=== PATIENT | female | born 1955 | race Caucasian/White ===

== ENCOUNTER 2019-07-24 13:23 | Outpatient (CLI) | payer OTHER, SELFPAY ==
--- NOTE | 2019-07-24 13:48 | XR_ITS ---
WS: [id number] Right hip, AP and frog-leg views, 07/24/2019 Clinical Data: R HIP PAIN Comparison: None. Findings: No fractures or dislocations are seen. The right hip joint is intact. No narrowing, sclerosis or eros ion is seen. The soft tissues are not remarkable. The adjacent pelvis is normal. There is irregularity of the acetabular lip from minimal osteoarthritic change. The right SI joint an d pubic symphysis are unremarkable. XR/XR hip RT 2-3V wo/w pel* [id number] Impression: Minimal osteoarthritis of the right acetabulum.
== END 2019-07-24 13:24 | disposition home or self-care (01) ==
LOC: RAD 13:43
PROVIDERS: Family Provider Family Medicine; PCP Family Medicine; Visit Provider Orthopaedic Surgery
DX: M16.11 Unilateral primary osteoarthritis, right hip (principal); M25.551 Pain in right hip
CPT/HCPCS: 73502

== ENCOUNTER 2020-01-04 13:43 | Outpatient (CLI) | payer OTHER, SELFPAY | END 2020-01-04 13:44 | disposition home or self-care (01) | PROVIDERS: PCP Family Medicine; Visit Provider Internal Medicine Critical Care Medicine | DX: R91.1 Solitary pulmonary nodule (principal) | CPT/HCPCS: 86698 ==

== ENCOUNTER 2020-01-15 08:43 | Outpatient (CLI) | payer OTHER, SELFPAY ==
--- NOTE | 2020-01-15 09:00 | CT_ITS ---
WS: [id number] CT CHEST TECHNIQUE: Noncontrast CT of the chest with coronal and sagittal reformatted images. CLINICAL INFORMATION: Necrotizing granuloma COMPARISON: CT chest and PET/CT DLP: 808.[address] scans at [facility] use at least one of these dose optimization techniques: automat ed exposure control; mA and/or kV adjustment per patient size (includes targeted exams where dose is matched to clinical indication); or iterative reconstruction. FINDINGS: Mild chronic emphysematous changes. No mediastinal or hilar lymphadenopathy. No axillary lymphadenopa thy. Previously described right upper lobe nodule is slightly smaller and less dense today measuring 11 x 7 mm with a small amount of satellite nodularity which may be due to prior biopsy. No other susp icious pulmonary parenchymal abnormalities. No acute pulmonary infiltrates. No focal pneumonia or Ple ural fluid. Normal thyroid gland. Adrenal glands are normal. A few low-attenuation lesions in the right hepatic l obe too small characterize but likely hepatic cysts. These are unchanged. Hypertrophic changes thorac ic spine. CT/CT chest wo con [id number] IMPRESSION: 1. Previously described right upper lobe pulmonary nodule is slightly smaller and less dense today measuring 11 x 7 mm with a small amount of satellite nodul arity which may be due to prior biopsy. No other suspicious pulmonary parenchym al opacities. 2. No mediastinal or hilar lymphadenopathy. 3. No other significant interval changes.
== END 2020-01-15 08:44 | disposition home or self-care (01) ==
LOC: RADWPI 08:48
PROVIDERS: Family Provider Family Medicine; PCP Family Medicine; Visit Provider Internal Medicine Critical Care Medicine
DX: R91.1 Solitary pulmonary nodule (principal)
CPT/HCPCS: 71250

== ENCOUNTER 2020-02-19 12:31 | Outpatient (CLI) | payer OTHER, SELFPAY ==
[2020-02-19 13:23] LABS: Magnesium 2.3 mg/dL (1.7-2.3)
== END 2020-02-19 12:32 | disposition home or self-care (01) ==
LOC: LAB 12:34
PROVIDERS: Nurse Practitioner Family; PCP Family Medicine; Visit Provider Family Medicine
DX: I48.92 Unspecified atrial flutter (principal)
CPT/HCPCS: 83735

== ENCOUNTER 2020-03-18 07:11 | Outpatient (CLI) | payer OTHER, SELFPAY ==
--- NOTE | 2020-03-18 07:38 | ECG_ITS ---
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 Interpretive Statements NAME OF STUDY: LEXISCAN SESTAMIBI STRESS TEST INDICATION: New Onset Atrial Flutter PROCEDURE: At the baseline, the blood pressure was 126/73 mmHg, oxygen saturation 98% with a heart rate of 62 bpm. The electrocardiogram showed normal sinus rhythm, normal axis with nonspecific T wave inversion in lead III. The Lexiscan was infused over a period of 20 seconds. A total of 0.4 milligrams of Lexiscan was infused. The stress phase was continued for a total of 5 minutes. Heart rate at the end of the stress phase was 83 bpm, oxygen saturation 98% with a blood pressure 133/69 mmHg. The EKG at the peak infusion revealed nonspecific T wave inversion in lead II, III and V5. Sestamibi was injected 20 seconds after the Lexiscan infusion. Blood pressure at the end of the recovery phase was 129/74 mmHg, oxygen saturation 98% with a heart rate of 82 beats per minute. CONCLUSION: 1. No significant EKG changes with the LexiScan infusion. 2. No LexiScan induced chest pain or cardiac arrhythmia. 3. Normal blood pressure and heart rate response. 4. Sestamibi/sestamibi perfusion scan pending; see separate report. Send copy of results to Dr Joe and Dr Acosta Electronically Signed On 03-21-2020 13:49:37 COAL HANDLING SUPERVISOR by Qing Wakefield M.D. [email or web address].[facility] Technologiesdel[facility].[employer]/store/OM/[id number]
--- NOTE | 2020-03-18 07:39 | NMCV_ITS ---
NM mery perf SPECT r/s* [id number] Nola Schmitt Age: 64 Gender: F : 1955 Exam Date: 03/18/2020 08:07 Ordering Phys: Leelee Molina CAT CRACKER OPERATOR Technologist: LOVE Ojeda Exam Location: [facility] Indications: NEW ONSET FLUTTER STRESS TEST Please see separate stress test report in [facility] for full findings IMAGE PROTOCOL Rest/Stress 1 Lexiscan Day Radiopharmaceutical Dose (mCi) Administration Site Administered by Rest: Tc-99m 10.0 IV LOVE Ojeda Stress:Tc-99m 32.7 IV Natasha Ma RESOURCE ANALYST Rest: 18-Mar-2020 60 Discovery 630 Stress: 18-Mar-2020 30 Discovery 630 0.4mg Lexiscan. Images obtained in supine and prone position. SPECT RESULTS Technical Quality: Excellent Raw Data Analysis: Normal Image Corrections: No attenuation or motion correction applied Summed Stress Score: 0 Summed Rest Score: 0 Summed Difference Score: 0 PERFUSION FINDINGS SPECT images demonstrate homogeneous tracer distribution throughout the myocardium. FUNCTIONAL RESULTS (calculated via Gated SPECT) Stress Image LV EF (%): 75 Stress EDV (mL):60 TID: 0.97 Stress ESV (mL):15 FUNCTIONAL FINDINGS: There is normal left ventricular systolic function. IMPRESSIONS 1. Normal myocardial perfusion imaging with no evidence of ischemia. 2. LV systolic function is normal with EF of 75%. Mauri Roach MD (Electronically Signed) Final Date: 20 March 2020 17:06 S
[2020-03-18 07:40] VITALS: BMI 28.2
--- NOTE | 2020-03-18 07:41 | USCV_ITS ---
Nola Schmitt Age: 64 Gender: F : 1955 Exam Date: 03/18/2020 07:40 Ordering Phys: Leelee Molina FITNESS CONSULTANT Technologist: David Montana [place] [facility] [place]: CHEST PAIN BP: / HR: 65 Rhythm: Other Technical Quality: Adequate MEASUREMENTS (Male / Female) Normal Values 2D ECHO LV Diastolic Diameter PLAX 3.6 cm 4.2 - 5.9 / 3.9 - 5.3 cm LV Systolic Diameter PLAX 2.5 cm IVS Diastolic Thickness 0.9 cm 0.6 - 1.0 / 0.6 - 0.9 cm IVS Systolic Thickness 1.2 cm LVPW Diastolic Thickness 1.2 cm 0.6 - 1.0 / 0.6 - 0.9 cm LVPW Systolic Thickness 1.1 cm LVOT Diameter 2.1 cm LV Ejection Fraction 2D Teich 58.2 % LV Ejection Fraction MOD 2C 66.4 % LV Ejection Fraction 2C AL 68.0 % LA Diameter 3.1 cm LA Width 4.1 cm LA Height 4.2 cm RA Width 3.0 cm RA Height 3.8 cm Aorta at Sinotubular Diameter 2.7 cm M-MODE LV Diastolic Diameter MM 4.5 cm 4.2 - 5.9 / 3.9 - 5.3 cm LV Systolic Diameter MM 2.7 cm LV Ejection Fraction MM Teich 70.6 % IVS Diastolic Thickness MM 1.1 cm 0.6 - 1.0 / 0.6 - 0.9 cm IVS Systolic Thickness MM 1.3 cm LVPW Diastolic Thickness MM 0.9 cm 0.6 - 1.0 / 0.6 - 0.9 cm LVPW Systolic Thickness MM 1.4 cm RV Diastolic Diameter MM 2.5 cm Aortic Annulus Diameter 2.9 cm LA Ao Ratio MM 1.2 MV E Point Septal Separation 0.9 cm DOPPLER AV Peak Velocity 124.0 cm/s LVOT Peak Velocity 103.0 cm/s AV Area Cont Eq vti 3.6 cm squared AV Area Cont Eq pk 2.8 cm squared MV Area PHT 5.0 cm squared Mitral E to A Ratio 1.1 MV E' Velocity 37.3 cm/s Mitral E to MV E' Ratio 7.4 Mitral E to LV E' Lateral Ratio 7.7 Mitral E to LV E' Septal Ratio 7.1 TR Peak Velocity 151.3 cm/s TR Peak Gradient 9.2 mmHg TV Peak E Velocity 83.0 cm/s Right Atrial Pressure 3.0 mmHg Pulmonary Artery Systolic Pressu 12.2 mmHg FINDINGS Left Ventricle Normal left ventricular size, systolic function and wall thickness, with no regional wall motion abnormalities. Left ventricular ejection fraction is estimated at 65 %. Normal diastolic function. Right Ventricle Normal right ventricular size and systolic function. Right ventricular systolic pressure 12.2 mmHg. Right Atrium Normal right atrial size. Left Atrium Normal left atrial size. Mitral Valve Structurally normal mitral valve. No mitral valve stenosis. Trace mitral valve regurgitation. Aortic Valve Structurally normal trileaflet aortic valve. No aortic valve stenosis. No aortic valve regurgitation. Tricuspid Valve Structurally normal tricuspid valve. No tricuspid valve stenosis. Trace to mild tricuspid valve regurgitation. Pulmonic Valve Pulmonic valve not well visualized. Pericardium No pericardial effusion. Aorta Normal size aortic root and proximal ascending aorta. CONCLUSIONS 1. Normal left ventricular size, systolic function and wall thickness, with no regional wall motion abnormalities. Left ventricular ejection fraction is estimated at 65 %. Normal diastolic function. 2. No significant chamber abnormalities. 3. No significant valve abnormalities. 4. There is no pericardial effusion. 5. There are no intracardiac masses. 6. No prior similar studies to compare. Qing Wakefield MD (Electronically Signed) Final Date: 21 March 2020 20:56 S
[2020-03-18 09:30] VITALS: BP 133/77; PULSE 99
[2020-03-18] MEDS: regadenoson 0.4 Mg/5 ml Syringe IVP (09:30)
== END 2020-03-18 07:12 | disposition home or self-care (01) ==
LOC: RAD 07:15
PROVIDERS: PCP Family Medicine; Visit Provider Nurse Practitioner Family
DX: I48.92 Unspecified atrial flutter (principal); R07.9 Chest pain, unspecified
CPT/HCPCS: 78452; 93017; 93306; A9500; J2785

== ENCOUNTER → 2020-10-31 09:25 | Outpatient (BNVA) | payer OTHER, SELFPAY | PROVIDERS: PCP Family Medicine; Visit Provider Podiatrist Foot & Ankle Surgery | DX: M79.672 Pain in left foot (principal); M72.2 Plantar fascial fibromatosis; M19.072 Primary osteoarthritis, left ankle and foot | CPT/HCPCS: 73630 ==

== ENCOUNTER → 2021-11-24 08:25 | Outpatient (BNVA) | payer OTHER, SELFPAY | PROVIDERS: PCP Family Medicine; Visit Provider Family Medicine | DX: E03.9 Hypothyroidism, unspecified (principal); G47.00 Insomnia, unspecified; M19.90 Unspecified osteoarthritis, unspecified site; I48.92 Unspecified atrial flutter | CPT/HCPCS: 80053; 80061; 82306; 82607; 84443; 85025 ==

== ENCOUNTER 2021-12-11 09:22 | Outpatient (CLI) | payer OTHER, SELFPAY ==
--- NOTE | 2021-12-11 09:40 | MM_ITS ---
WS: [id number] BILATERAL SCREENING DIGITAL BREAST TOMOSYNTHESIS MAMMOGRAM WITH CAD HISTORY: SCREENING COMPARISON: 05/17/2017 and 01/27/2015 Bilateral CC and MLO views with tomosynthesis and synthetic mammography submitted. Computer aided det ection analyzed. Breast composition: There are scattered areas of fibroglandular density. No suspicious masses, microc alcifications or architectural distortion. MM/[place] [id number] IMPRESSION: BI-RADS: 1-Negative FOLLOW UP: 1 Year Follow-up
== END 2021-12-11 09:23 | disposition home or self-care (01) ==
LOC: RAD 09:22
PROVIDERS: PCP Family Medicine; Visit Provider Family Medicine
DX: Z12.31 Encounter for screening mammogram for malignant neoplasm of breast (principal)
CPT/HCPCS: 77063; 77067

== ENCOUNTER 2021-12-13 21:10 | Emergency (ER) | payer OTHER, SELFPAY ==
[2021-12-13 21:17] VITALS: BMI 30.7
--- NOTE | 2021-12-13 21:28 | ECG_ITS ---
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 Measurements Intervals [place] Rate: 134 P: [place]: QRS: 28 QRSD: 93 T: -37 QT: 281 QTc: 420 Interpretive Statements ATRIAL FIBRILLATION WITH RAPID VENTRICULAR RESPONSE NONSPECIFIC ST & T-WAVE ABNORMALITY No previous ECG available for comparison Electronically Signed On 12-14-2021 14:22:27 CDT by Scout Hawkins M.D. [email or web address]le Network Securitywinston medical centerNovaMed Pharmaceuticalsmarymount hospital.[employer]/store/NU/[id number] f
[2021-12-13 21:29] VITALS: BP 129/94; PULSE 146; RESP 17; TEMP 36.7; O2SAT 96
--- NOTE | 2021-12-13 22:31 | ED_ITS ---
HPI - Arrhythmia/Palpitations General: Chief Complaint: Arrhythmia/Palpitations Stated Complaint: Heart Beating at 145 Minute Time Seen by Provider: 12/13/21 22:26 Source: patient Mode of arrival: ambulatory Limitations: no limitations History of Present Illness: 66-year-old female states that she had paroxysmal A. fib or flutter back in 2019 states that she had taken a metoprolol then at home and converted she states that she had no issues until tonight she started feeling palpitations 2 to 3 hours ago states she took 12.5 mg of metoprolol and she is continue her palpitation she is in A. fib with RVR with heart rates in the 140s she denies any chest pain denies any shortness of breath. Associated symptoms: Deny nausea or vomiting Review of Systems Const: Denies: fever(s), chills, body aches or change in appetite Eyes: Denies: blurry vision or eye discomfort ENMT: Denies: throat pain or dental pain Card: Reports: palpitations Resp: Denies: dyspnea GI: Denies: abdominal pain, nausea, vomiting or diarrhea : Denies: dysuria Musc: Denies: neck pain or back pain Skin/Breast: Denies: rash Neuro: Denies: headache(s) Psych: Denies: depression Jayson/Lymph: Denies: easy bruising All/Imm: Denies: urticaria PFSH ED PFSH: Medical History Hypothyroid Right hip pain Surgical History History of total left hip arthroplasty Family History Mother Atrial fibrillation Father Heart failure Other CAD (coronary artery disease) Dementia Hyperlipidemia Denies family history of Diabetes Clotting disorder Psychiatric illness Chronic kidney disease (CKD) Suicide Anesthesia complication Bleeding disorder Family history of premature coronary artery disease Lung disease Cancer Hypertension Stroke Social History Alcohol intake: current Alcohol intake frequency: few times a month Lives independently: Yes Household members: spouse Marital status: Highest education level completed: Professional Degree (MD, DO, LYNNETTE, DVM, DDS, DPM, etc) Education level details: Doctor Current 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 Current occupational exposures/hazards: No History of recent travel: No Current gender identity: Female Physical Exam Const: COMMON NORMALS: no acute distress, patient oriented x3 and healthy appearing HENMT: COMMON NORMALS: normocephalic and atraumatic HEAD & SCALP: normocephalic and atraumatic Eye: COMMON NORMALS: Equal, round and reactive pupils present and EOMs intact bilaterally PUPIL: Yes Equal, round and reactive pupils present Neck/C-Spine: COMMON NORMALS: full ROM and supple Chest: COMMONS NORMALS: normal inspection of the chest and normal palpation of entire chest wall Resp: COMMON NORMALS: normal respiratory effort, No retractions, No use of accessory muscles and clear to auscultation bilaterally AUSCULTATION: clear to auscultation bilaterally Cardio: COMMON NORMALS: No murmurs present (Cardio) RATE: tachycardic RHYTHM: abnormal rhythm irregularly irregular GI: COMMON NORMALS: Normal to inspection, nondistended, normoactive bowel sounds present, Soft to palpation, non-tender and no masses PALPATION: Yes Soft to palpation Extremity: COMMON NORMALS: normal to inspection and full ROM Neuro: COMMON NORMALS: patient oriented x3, moves all extremities and no focal motor deficits Psych: COMMON NORMALS: mental status grossly normal, Normal thought process present and cooperative THOUGHT PROCESS: Normal thought process present Skin: COMMON NORMALS: no rashes or lesions noted and no wounds GENERAL SKIN EXAM: no rashes or lesions noted Course Vital Signs: Vital signs: Vital Signs Temperature 98.1 F 12/13/21 21:29 Pulse Rate 96 12/13/21 23:35 Respiratory Rate 19 H 12/13/21 23:35 Blood Pressure 110/82 12/13/21 23:35 Pulse Oximetry 96 12/13/21 23:35 Oxygen Delivery Me thod 12/13/21 23:35 MDM - Arrhythmia/Palpitations Medical Decision Making Patient presents here with Sanju lorenzo with RVR patient's heart rate here is much improved she is asymptomatic we will give her dose of Eliquis here did start her on metoprolol for rate control and Eliquis at home we will get her follow-up with cardiology she is return if worsening she understands agrees to plan. Lab Data : 12/13/21 23:04 12/13/21 23:04 Laboratory Results WBC 8.7 10^3/uL (4.0-10.0) 12/13/21 23:04 RBC 4.95 10^6/uL (4.1-5.3) 12/13/21 23:04 Hgb 14.5 g/dL (11.5-15.3) 12/13/21 23:04 Hct 45.3 % (37.0-47.0) 12/13/21 23:04 MCV 91.5 fl (81-99) 12/13/21 23:04 MCH 29.3 pg (28.0-34.0) 12/13/21 23:04 MCHC 32.0 g/dL (30.0-36.0) 12/13/21 23:04 RDW 13.7 % (12.1-15.1) 12/13/21 23:04 Plt Count 240 10^3/cmm (130-400) 12/13/21 23:04 MPV 10.5 fL (7.4-10.4) H 12/13/21 23:04 Neut % (Auto) 53.9 % 12/13/21 23:04 Lymph % (Auto) 32.6 % 12/13/21 23:04 Claiborne % (Auto) 8.6 % 12/13/21 23:04 Eos % (Auto) 3.7 % 12/13/21 23:04 Baso % (Auto) 0.9 % 12/13/21 23:04 Neut # (Auto) 4.68 10^3/uL (1.8-7.7) 12/13/21 23:04 Lymph # (Auto) 2.8 10^3/uL (0.8-4.8) 12/13/21 23:04 Claiborne # (Auto) 0.8 10^3/uL (0.2-0.9) 12/13/21 23:04 Eos # (Auto) 0.3 10^3/uL (0.0-0.8) 12/13/21 23:04 Baso # (Auto) 0.1 10^3/uL (0.0-0.1) 12/13/21 23:04 Nucleated RBC % (auto) 0 % 12/13/21 23:04 Nucleated RBCs # 0.0 /100WBC 12/13/21 23:04 Sodium 143 mmol/L (136-145) 12/13/21 23:04 Potassium 4.1 mmol/L (3.5-5.1) 12/13/21 23:04 Chloride 107 mmol/L (98-107) 12/13/21 23:04 Carbon Dioxide 27 mmol/L (22-29) 12/13/21 23:04 Anion Gap 13.1 (5-19) 12/13/21 23:04 BUN 16 mg/dL (8-23) 12/13/21 23:04 Creatinine 0.7 mg/dL (0.5-0.9) 12/13/21 23:04 GFR Calculation 84.2 mL/min (90-130) L 12/13/21 23:04 Glucose 92 mg/dL (65-115) 12/13/21 23:04 Calculated Osmolality 297 mOsm/kg (285-295) H 12/13/21 23:04 Calcium 9.5 mg/dL (8.5-10.5) 12/13/21 23:04 Magnesium 2.4 mg/dL (1.7-2.3) H 12/13/21 23:04 Troponin T Baseline 9 ng/L (0-10) 12/13/21 23:04 TSH 10.32 uIU/mL (0.27-4.20) H 12/13/21 23:04 Free T4 1.12 ng/dL (0.82-1.77) 12/13/21 23:04 EKG Data EKG 1: I personally reviewed and interpreted this EKG as follows: EKG interpretation date: 12/13/21 EKG interpretation time: 21:24 Interpretation: afig rvr hr [address] or t wave abnormalities qrs 93 qtc 420 EKG 2: I personally reviewed and interpreted this EKG as follows: EKG interpretation date: 12/13/21 EKG interpretation time: 23:31 Interpretation: afib with rvr hr [address] or t wave abnormalities qrs 93 qtc 394 Discharge Plan Discharge Patient Disposition: Home Clinical Impression: Atrial fibrillation with rapid ventricular response Condition: Stable Prescriptions: New metoprolol tartrate 25 mg tablet 25 mg PO BID Qty: 60 0RF Eliquis 5 mg tablet 5 mg PO BID Qty: 60 0RF No Action cholecalciferol (vitamin D3) 25 mcg (1,000 unit) capsule 25 mcg PO DAILY tramadol 50 mg tablet 25 mg PO DAILY PRN levothyroxine 137 mcg capsule 137 mcg PO DAILY Discharge Orders: Discharge ED (Routine); Ordered 12/14/21 Ordered By: Rylee Sena Referrals: Scout Hawkins MD [Physician] - 1-3 days José Antonio Acosta DO [Primary Care Provider] - 1-3 days Discharge Diet: Advance as tolerated Discharge Activity: Resume usual activity Patient Instructions: A-fib (Atrial Fibrillation) (ED) Coding Level of Care Code ED Heavy Coil Winder for Chg Fwd Exam Comprehensive
[2021-12-13 22:44] VITALS: BP 113/74; PULSE 137; RESP 18; O2SAT 98
[2021-12-13 23:15] VITALS: BP 114/87; PULSE 153; RESP 22; O2SAT 99
[2021-12-13 23:18] LABS: Basophils # 0.1 10^3/uL (0.0-0.1); Basophils % 0.9 %; Eosinophils # 0.3 10^3/uL (0.0-0.8); Eosinophils % 3.7 %; Hematocrit 45.3 % (37.0-47.0); Hemoglobin 14.5 g/dL (11.5-15.3); Lymphocytes # 2.8 10^3/uL (0.8-4.8); Lymphocytes % 32.6 %; Mean Corpuscular Hemoglobin 29.3 pg (28.0-34.0); Mean Corpuscular Volume 91.5 fl (81-99); Mean Platelet Volume 10.5 fL (7.4-10.4); Monocytes # 0.8 10^3/uL (0.2-0.9); Monocytes % 8.6 %; Neutrophils # 4.68 10^3/uL (1.8-7.7); Neutrophils % 53.9 %; Nucleated Red Blood Cells % 0 %; Platelet Count 240 10^3/cmm (130-400); Red Blood Count 4.95 10^6/uL (4.1-5.3); Red Cell Distribution Width 13.7 % (12.1-15.1); White Blood Count 8.7 10^3/uL (4.0-10.0)
[2021-12-13] MEDS: sodium chloride 0.9% 1,000 ML 999 ML IV (23:18)
[2021-12-13] MEDS: dilTIAZem 5 mg/mL SDV 5 mL 15 MG IVP (23:18)
[2021-12-13 23:29] VITALS: BP 105/82; PULSE 96; RESP 20; O2SAT 98
--- NOTE | 2021-12-13 23:31 | ECG_ITS ---
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 Measurements Intervals [place] Rate: 87 P: [place]: QRS: 32 QRSD: 93 T: 5 QT: 350 QTc: 422 Interpretive Statements ATRIAL FIBRILLATION LOW QRS VOLTAGE IN PRECORDIAL LEADS [QRS DEFLECTION < 1.0 mV IN CHEST LEADS] NONSPECIFIC T-WAVE ABNORMALITY ABNORMAL RHYTHM ECG Compared to ECG 12/13/2021 21:24:12 Low QRS voltage now present T-wave abnormality still present Electronically Signed On 12-14-2021 14:26:17 CDT by Scout Hawkins M.D. [email or web address].[employer]/store/[id number]
[2021-12-13 23:35] VITALS: BP 110/82; PULSE 96; RESP 19; O2SAT 96
[2021-12-13] MEDS: metoprolol tartrate 25 mg Tablet 12.5 MG PO (23:45)
[2021-12-13 23:50] LABS: Anion Gap 13.1 (5-19); Blood Urea Nitrogen 16 mg/dL (8-23); Calcium 9.5 mg/dL (8.5-10.5); Carbon Dioxide 27 mmol/L (22-29); Chloride 107 mmol/L (98-107); Glomerular Filtration Rate 84.2 mL/min (90-130); Glucose 92 mg/dL (65-115); Magnesium 2.4 mg/dL (1.7-2.3); Osmolality Calculated 297 mOsm/kg (285-295); Potassium 4.1 mmol/L (3.5-5.1); Sodium 143 mmol/L (136-145)
[2021-12-13 23:54] LABS: Troponin(5th) Baseline 9 ng/L (0-10)
[2021-12-14 00:01] LABS: Free T4 Free Thyroxine 1.12 ng/dL (0.82-1.77); Thyroid Stimulating Hormone 10.32 uIU/mL (0.27-4.20)
[2021-12-14] MEDS: apixaban 5 mg Tablet PO (00:56)
[2021-12-14 01:04] VITALS: BP 120/81; PULSE 97; RESP 16; O2SAT 98
--- NOTE | 2021-12-15 11:43 | DCPLANNER ---
Addendum entered by Catalina Shelton 12/21/21 15:13: Patient had a follow up appointment scheduled for 12.18.21 with Luisa Casanova at [facility] - patient did attend appointment. Original Note: intervention manager had message to schedule a follow up appointment for patient with cardiology. intervention manager sent patients information to the front office staff at [facility]. Patients information will be printed and reviewed. Clinic will call patient with appointment information.
== END 2021-12-14 00:51 | disposition home or self-care (01) ==
PROVIDERS: Emergency Medicine; Emergency Provider Emergency Medicine; PCP Family Medicine
DX: I48.20 Chronic atrial fibrillation, unspecified (principal)
CPT/HCPCS: 36415; 80048; 83735; 84439; 84443; 84484; 85025; 93005; 96361; 96374; 99284; J3490; J7030

== ENCOUNTER 2022-03-02 09:45 | Outpatient (CLI) | payer OTHER, SELFPAY ==
--- NOTE | 2022-03-02 | CT_ITS ---
WS: [id number] CT NECK TECHNIQUE: Contrast-enhanced CT of the neck with coronal and sagittal reformatted images. CLINICAL INFORMATION: COUGH COMPARISON: PET/CT 2019 and CTneck 2013, US thyroid 2013 DLP: 288.[address] scans at [facility] use at least one of these dose optimization techniques: automated e xposure control; mA and/or kV adjustment per patient size (includes targeted exams where dose is matc hed to clinical indication); or iterative reconstruction. FINDINGS: Paranasal sinuses and mastoid air cells are well aerated. Normal posterior nasopharynx. Normal paraph aryngeal fat. Submandibular glands are normal. Parotid glands are normal. No evidence of supraglottic or glottic mass. Subglottic airway is patent. Atrophic thyroid gland is u nchanged in appearance. Lung apices are well aerated. No cervical lymphadenopathy. Straightening with slight reversal the nor mal cervical lordosis. Disc space narrowing worse C4-5, C5-C6, and C6-C7 with mild central canal sten osis. Slight anterolisthesis C3 on C4. No cervical lymphadenopathy. CT/CT neck w con* [id number] IMPRESSION: 1. No evidence of supraglottic or glottic mass. Normal subglottic airway. 2. No cervical lymphadenopathy. 3. Atrophic thyroid gland is unchanged in appearance. 4. Moderate spondylitic changes cervical spine with slight reversal of the nor mal cervical lordosis. Disc space narrowing worse at C4-C5 C5-C6 and C6-C7 with mild central canal stenosis. 5. Slight anterolisthesis C3 on C4.
--- NOTE | 2022-03-02 10:29 | FL_ITS ---
WS: [id number] Modified barium swallow, 03/02/2022 Clinical Data: Other dysphagia Comparison: None. Fluoroscopy time: 1min 31.659181ibz # of spot films: 1 Findings: The patient swallowed various mixtures with no oral or pharyngeal hesitation. There is no aspiration or penetration. There is osteoarthritis of the lower cervical vertebral bodies which impinged on the hypopharynx. FL/FL barium swallow modifd [id number] Impression: Impingement of osteoarthritis of the lower cervical spine onto the posterior hy popharynx which may cause difficulty and symptoms during swallowing.
[2022-03-02] MEDS: iohexol 350 mg/mL 100 mL Btl IV (11:14)
== END 2022-03-02 09:46 | disposition home or self-care (01) ==
PROVIDERS: PCP Family Medicine; Visit Provider Specialist
DX: R05.9 Cough, unspecified (principal); R13.19 Other dysphagia; M47.892 Other spondylosis, cervical region
CPT/HCPCS: 70491; 74230; 92611

== ENCOUNTER → 2022-07-09 15:20 | Outpatient (BNVA) | payer MEDICARE, OTHER, SELFPAY | PROVIDERS: PCP Family Medicine; Visit Provider Clinical Nurse Specialist Adult Health | DX: E03.9 Hypothyroidism, unspecified (principal); J45.20 Mild intermittent asthma, uncomplicated; E55.9 Vitamin D deficiency, unspecified | CPT/HCPCS: 80053; 82306; 84443 ==

== ENCOUNTER → 2022-08-20 09:21 | Outpatient (BNVA) | payer MEDICARE, OTHER, SELFPAY | PROVIDERS: PCP Clinical Nurse Specialist Adult Health; Visit Provider Clinical Nurse Specialist Adult Health | DX: E03.9 Hypothyroidism, unspecified (principal); E55.9 Vitamin D deficiency, unspecified | CPT/HCPCS: 82306; 84443 ==

== ENCOUNTER 2022-09-26 18:40 | Emergency (ER) | payer MEDICARE, OTHER, SELFPAY ==
--- NOTE | 2022-09-26 18:44 | XRR_ITS ---
PROCEDURE INFORMATION: Exam: XR Chest Exam date and time: 09/26/2022 6:57 PM Age: 67 years old Clinical indication: Pain; Chest pressure; Additional info: Cp TECHNIQUE: Imaging protocol: Radiologic exam of the chest. Views: 1 view. COMPARISON: CT chest con [id number] 01/15/2020 9:07 AM FINDINGS: Lungs: Unremarkable. No consolidation. Pleural spaces: Unremarkable. No pleural effusion. No pneumothorax. Heart/Mediastinum: Unremarkable. No cardiomegaly. Bones/joints: Unremarkable. XR/XR chest 1V portable [id number] IMPRESSION: No acute findings.
[2022-09-26 18:47] VITALS: BP 111/82; PULSE 88; RESP 18; TEMP 36.5; O2SAT 98; BMI 32.3
--- NOTE | 2022-09-26 18:52 | ECG_ITS ---
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 Measurements Intervals [place] Rate: 130 P: 0 PA: 0 QRS: 21 QRSD: 84 T: 0 QT: 199 QTc: 293 Interpretive Statements ATRIAL FLUTTER/TACHYCARDIA WITH RAPID VENTRICULAR RESPONSE LOW QRS VOLTAGE IN PRECORDIAL LEADS [QRS DEFLECTION < 1.0 mV IN CHEST LEADS] SEPTAL MYOCARDIAL INFARCTION , OF INDETERMINATE AGE [40+ ms Q WAVE IN V1/V2] ST DEPRESSION, CONSIDER SUBENDOCARDIAL INJURY [0.1+ mV ST DEPRESSION] Compared to ECG 12/13/2021 23:31:02 Myocardial infarct finding now present ST (T wave) deviation now present Atrial fibrillation no longer present T-wave abnormality no longer present Electronically Signed On 09-26-2022 19:00:44 CDT by Mauri Roach M.D. [email or web address]/store/[id number]
--- NOTE | 2022-09-26 19:27 | W.ED.CHESTPA ---
HPI - Chest Pain General: Chief Complaint: Chest Pain Stated Complaint: Afib\A Flutter Time Seen by Provider: 09/26/22 19:18 History of Present Illness: Presents to the ER with complaints of A-fib a flutter, patient says her chest is pounding and she feels short of breath. Patient does have a history of A-fib a flutter which usually controls with metoprolol and sometimes she has to take additional doses. She has taken additional doses today up to about 200 mg with no relief today. Patient is on Eliquis. SAGE complaint: chest pain (And A-fib flutter) Pertinent past history: other (A-fib flutter) Onset (ago): day(s) (Today) Timing of current episode: constant Prior episodes: Yes Onset: during rest Relieving factors: nothing Exacerbating factors: nothing Associated symptoms: Reports diaphoresis, dyspnea and palpitations; Deny abdominal pain, fever(s), nausea or vomiting Treatment prior to arrival: other (Patient took additional doses of metoprolol up to about 200 mg) Review of Systems General: Reports: 10 or more systems reviewed and unremarkable except in HPI and below Const: Reports: diaphoresis; Denies: fever(s) or chills Eyes: Denies: change in vision or photophobia ENMT: Denies: throat pain or odynophagia Card: Reports: chest pain, palpitations and irregular heart rhythm Resp: Reports: dyspnea; Denies: productive cough or non-productive cough GI: Denies: abdominal pain, nausea or vomiting : Denies: flank pain or dysuria Musc: Denies: neck pain, back pain or extremity pain Skin/Breast: Denies: rash or pruritus PFSH ED PFSH: Medical History Atrial fibrillation Generalized osteoarthritis Hx of renal calculi Hypothyroid Lung nodule, solitary workup negative Reactive airway disease Right hip pain Vitamin D deficiency Surgical History History of total left hip arthroplasty History of total right hip arthroplasty Family History Mother Atrial fibrillation Chronic kidney disease (CKD) Father Heart failure Other CAD (coronary artery disease) Dementia Hyperlipidemia Social History Smoking and tobacco status: never smoked Alcohol intake: current Alcohol intake frequency: few times a month Substance/Drug Use: never Lives independently: Yes Household members: spouse Marital status: Highest education level completed: Professional Degree (, , [employer], DVM, DDS, DPM, etc) Education level details: Doctor Current 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 Current occupational exposures/hazards: No Do you think of yourself as: Straight/Heterosexual Current gender identity: Female Physical Exam Const: COMMON NORMALS: no acute distress, average body habitus, patient oriented x3, no limitations, healthy appearing, alert and well nourished HENMT: COMMON NORMALS: normocephalic, atraumatic, hearing grossly normal bilaterally, external ears normal, Normal external nose present and moist oral mucous membranes HEAD & SCALP: normocephalic and atraumatic NOSE: Normal external nose present EXTERNAL EAR: Yes external ears normal Eye: COMMON NORMALS: Equal, round and reactive pupils present, EOMs intact bilaterally, conjunctivae normal and no scleral icterus CONJUNCTIVA: Yes conjunctivae normal PUPIL: Yes Equal, round and reactive pupils present Neck/C-Spine: COMMON NORMALS: full ROM, no lymphadenopathy, supple, no meningeal signs, no JVD and Thyroid normal THYROID: Thyroid normal Lymph: LYMPHATIC: no lymphadenopathy noted Chest: COMMONS NORMALS: normal inspection of the chest and normal palpation of entire chest wall Resp: COMMON NORMALS: normal respiratory effort, No retractions, No use of accessory muscles and clear to auscultation bilaterally AUSCULTATION: clear to auscultation bilaterally Cardio: COMMON NORMALS: no JVD RATE: tachycardic RHYTHM: abnormal rhythm irregularly irregular GI: COMMON NORMALS: Normal to inspection, nondistended, normoactive bowel sounds present, Soft to palpation, non-tender, No hepatosplenomegaly present and no masses PALPATION: Yes Soft to palpation and Yes No hepatosplenomegaly present : COMMON NORMALS: Yes no CVA tenderness BLADDER/KIDNEY EXAM: Yes no CVA tenderness Back/Pelvis: COMMON NORMALS: no CVA tenderness Neuro: COMMON NORMALS: patient oriented x3 SENSORIUM/ORIENTATION: Yes alert MENINGEAL SIGNS: Yes no meningeal signs Course Vital Signs: Vital signs: Vital Signs Temperature 97.7 F 09/26/22 18:47 Pulse Rate 72 09/26/22 21:46 Respiratory Rate 24 H 09/26/22 21:46 Blood Pressure 102/64 09/26/22 21:46 Pulse Oximetry 96 09/26/22 21:46 Oxygen Delivery Me thod Room Air 09/26/22 18:47 MDM - Chest Pain Medical Decision Making Patient presents to the ER with chest pain and atrial fib with RVR. Patient's rate was in the 140s. Chest pain work-up was obtained with serial EKGs and serial labs. Patient was given a bolus of 10 mg IV of Cardizem with no results, then patient was given a bolus of 20 mg Cardizem IV which resulted in patient's rate decreasing down to the 70s and patient going back into normal sinus rhythm. Patient feels much better. Patient said she will follow-up with her practicing dermatologist and ask for some oral Cardizem to take on an as-needed basis when this happens again. Patient will be discharged home Differential Diagnosis Unlikely acute massive pulmonary embolism, acute respiratory failure, acute myocardial infarction, cardiac arrest or sudden cardiac Medical Records I reviewed the patient's medical records. Lab Data I reviewed the patient's lab results. 09/26/22 19:30 09/26/22 19:30 Radiology Impressions Chest X-Ray 09/26/22 18:44 IMPRESSION: No acute findings. Laboratory Results WBC 6.8 10^3/uL (4.0-10.0) 09/26/22 19:30 RBC 4.99 10^6/uL (4.1-5.3) 09/26/22 19:30 Hgb 14.7 g/dL (11.5-15.3) 09/26/22 19:30 Hct 45.7 % (37.0-47.0) 09/26/22 19:30 MCV 91.6 fl (81-99) 09/26/22 19:30 MCH 29.5 pg (28.0-34.0) 09/26/22 19:30 MCHC 32.2 g/dL (30.0-36.0) 09/26/22 19:30 RDW 13.1 % (12.1-15.1) 09/26/22 19:30 Plt Count 228 10^3/cmm (130-400) 09/26/22 19:30 MPV 10.9 fL (7.4-10.4) H 09/26/22 19:30 Neut % (Auto) 52.1 % 09/26/22 19:30 Lymph % (Auto) 34.2 % 09/26/22 19:30 [place] % (Auto) 10.4 % 09/26/22 19:30 Eos % (Auto) 2.3 % 09/26/22 19:30 Baso % (Auto) 0.7 % 09/26/22 19:30 Neut # (Auto) 3.54 10^3/uL (1.8-7.7) 09/26/22 19:30 Lymph # (Auto) 2.3 10^3/uL (0.8-4.8) 09/26/22 19:30 [place] # (Auto) 0.7 10^3/uL (0.2-0.9) 09/26/22 19:30 Eos # (Auto) 0.2 10^3/uL (0.0-0.8) 09/26/22 19: Baso # (Auto) 0.1 10^3/uL (0.0-0.1) 09/26/22 19:30 Nucleated RBC % (auto) 0 % 09/26/22 19: Nucleated RBCs # 0.0 /100WBC 09/26/22 19:30 Sodium 139 mmol/L (136-145) 09/26/22 19:30 Potassium 4.0 mmol/L (3.5-5.1) 09/26/22 19:30 Chloride 101 mmol/L (98-107) 09/26/22 19: Carbon Dioxide 23 mmol/L (22-29) 09/26/22 19:30 Anion Gap 19.0 (5-19) 09/26/22 19:30 BUN 13 mg/dL (8-23) 09/26/22 19:30 Creatinine 0.7 mg/dL (0.5-0.9) 09/26/22 19:30 GFR Calculation 84.0 mL/min (90-130) L 09/26/22 19:30 Glucose 101 mg/dL (65-115) 09/26/22 19: Calculated Osmolality 288 mOsm/kg (285-295) 09/26/22:30 Calcium 9.3 mg/dL (8.5-10.5) 09/26/22 19:30 Total Bilirubin 0.3 mg/dL (0.15-1.2) 09/26/22 19:30 AST 17 U/L (0-32) 09/26/22 19:30 ALT 12 U/L (0-33) 09/26/22 19:30 Alkaline Phosphatase 45 U/L (35-105) 09/26/22 19:30 Troponin T Baseline 8 ng/L (0-10) 09/26/22 19:30 Troponin T 120 Minute 8.42 ng/L (0-10) 09/26/22 21:33 Delta Troponin T 0.42 ABS# (0-10) 09/26/22 21:33 Total Protein 7.1 g/dL (6.6-8.7) 09/26/22 19:30 Albumin 4.2 g/dL (3.5-5.2) 09/26/22 19:30 Globulin 2.9 g/dL (1.3-4.6) 09/26/22 19:30 EKG Data EKG 1: I personally reviewed and interpreted this EKG as follows: EKG interpretation date: 09/26/22 EKG interpretation time: 18:52 Prior EKG tracings: not available for review Interpretation: EKG showed atrial flutter/tachycardia with RVR at a rate of 130 bpm, QRS of 84 QT C of 293, septal myocardial infarction of indeterminate age with Q waves in V1 and V2, ST depression consider subacute endocardial injury, EKG 2: I personally reviewed and interpreted this EKG as follows: EKG interpretation date: 09/26/22 EKG interpretation time: 20:51 Prior EKG tracings: available for review Interpretation: EKG showed atrial fibrillation with a ventricular rate of 67 bpm, QRS duration duration of 86, QTc of 387, possible anterior myocardial infarction of indeterminate age with Q waves in V3 and V4. Discharge Plan Discharge Patient Disposition: Home Clinical Impression: Atypical chest pain, Paroxysmal atrial fibrillation with rapid ventricular response Condition: Stable Prescriptions: No Action tramadol 50 mg tablet 25 mg PO DAILY PRN (Reason: pain) Qty: 30 2RF levothyroxine 150 mcg tablet See Rx Instructions .ROUTE .COMPLEX Qty: 90 2RF Dose Instruction: TAKE 1 TABLET BY MOUTH EVERY DAY Rx Instructions: TAKE 1 TABLET BY MOUTH EVERY DAY albuterol sulfate 90 mcg/actuation HFA aerosol inhaler 2 inh inhalation QID PRN (Reason: shortness of breath or wheezing) Qty: 8.5 2RF metoprolol tartrate 50 mg tablet 50 mg PO BID Qty: 180 3RF Eliquis 5 mg tablet 5 mg PO BID Qty: 180 3RF cholecalciferol (vitamin D3) 125 mcg (5,000 unit) capsule 125 mcg PO DAILY Qty: 30 6RF Discharge Orders: Discharge ED (Routine); Ordered 09/26/22 Ordered By: Waylon Cadte Referrals: [facility] HOUSEKEEPING DIRECTOR [Primary Care Provider] - 1 week Patient Instructions: Atrial Fibrillation, Chest Pain (ED) Activity Restrictions/Additional Instructions: Please follow-up with your primary care practitioner and/or practicing dermatologist. Please discuss with your practicing dermatologist if you would benefit from an oral dose of Cardizem to take on an as-needed basis for this atrial fibrillation. Coding Level of Care Code ED Wet End Operator for Mihaela Sotelo
[2022-09-26 19:43] VITALS: BP 93/73; PULSE 141; RESP 18
[2022-09-26] MEDS: dilTIAZem 5 mg/mL SDV 5 mL 10 MG IVP (19:51)
[2022-09-26 19:54] VITALS: BP 128/89; PULSE 143; RESP 15; O2SAT 95
[2022-09-26 19:55] LABS: Basophils # 0.1 10^3/uL (0.0-0.1); Basophils % 0.7 %; Eosinophils # 0.2 10^3/uL (0.0-0.8); Eosinophils % 2.3 %; Hematocrit 45.7 % (37.0-47.0); Hemoglobin 14.7 g/dL (11.5-15.3); Lymphocytes # 2.3 10^3/uL (0.8-4.8); Lymphocytes % 34.2 %; Mean Corpuscular HGB Conc 32.2 g/dL (30.0-36.0); Mean Corpuscular Hemoglobin 29.5 pg (28.0-34.0); Mean Corpuscular Volume 91.6 fl (81-99); Mean Platelet Volume 10.9 fL (7.4-10.4); Monocytes # 0.7 10^3/uL (0.2-0.9); Monocytes % 10.4 %; Neutrophils # 3.54 10^3/uL (1.8-7.7); Neutrophils % 52.1 %; Nucleated Red Blood Cells % 0 %; Platelet Count 228 10^3/cmm (130-400); Red Blood Count 4.99 10^6/uL (4.1-5.3); Red Cell Distribution Width 13.1 % (12.1-15.1); White Blood Count 6.8 10^3/uL (4.0-10.0)
[2022-09-26] MEDS: dilTIAZem 5 mg/mL SDV 5 mL 20 MG IVP (20:16)
[2022-09-26 20:17] VITALS: BP 116/92; PULSE 141; RESP 15; O2SAT 93
[2022-09-26 20:48] LABS: Alanine Aminotransferase 12 U/L (0-33); Aspartate Amino Transferase 17 U/L (0-32); Blood Urea Nitrogen 13 mg/dL (8-23); Calcium 9.3 mg/dL (8.5-10.5); Carbon Dioxide 23 mmol/L (22-29); Chloride 101 mmol/L (98-107); Creatinine Clr Calc Pharmacy 79.5405; Glucose 101 mg/dL (65-115); Osmolality Calculated 288 mOsm/kg (285-295); Sodium 139 mmol/L (136-145); Total Bilirubin 0.3 mg/dL (0.15-1.2); Total Protein 7.1 g/dL (6.6-8.7)
[2022-09-26 20:49] LABS: Albumin Level 4.2 g/dL (3.5-5.2); Alkaline Phosphatase 45 U/L (35-105); Globulin 2.9 g/dL (1.3-4.6)
--- NOTE | 2022-09-26 20:51 | ECG_ITS ---
[facility] Test Date: 2022-09-26 Pat Name: Nola Schmitt Department: Room: Gender: Female Dismantler: : 1955 Requested By: Rylee Sena Order Number: [id number] Wanda MD: Mauri Roach M.D. Measurements Intervals [place] Rate: 67 P: 0 TX: 0 QRS: 15 QRSD: 86 T: -21 QT: 371 QTc: 394 Interpretive Statements ATRIAL FIBRILLATION POSSIBLE ANTERIOR MYOCARDIAL INFARCTION , OF INDETERMINATE AGE [30 ms Q WAVE IN V3/V4, OR R < 0.2 mV IN V4] Compared to ECG 09/26/2022 18:52:31 Atrial flutter no longer present ST (T wave) deviation no longer present Myocardial infarct finding still present Electronically Signed On 09-26-2022 22:42:43 CDT by Mauri Roach M.D. [id number]
[2022-09-26 21:24] LABS: Troponin(5th) Baseline 8 ng/L (0-10)
[2022-09-26 21:46] VITALS: BP 102/64; PULSE 72; RESP 24; O2SAT 96
[2022-09-26 22:15] LABS: Troponin 5 2HR 8.42 ng/L (0-10)
[2022-09-26 22:18] LABS: Troponin 5 2HR Delta 0.42 ABS# (0-10)
[2022-09-26 22:32] VITALS: BP 113/69; PULSE 72; RESP 20; O2SAT 97
== END 2022-09-26 22:34 | disposition home or self-care (01) ==
PROVIDERS: Emergency Medicine; Emergency Provider Emergency Medicine; PCP Clinical Nurse Specialist Adult Health
DX: I48.0 Paroxysmal atrial fibrillation (principal); R07.89 Other chest pain; Z79.01 Long term (current) use of anticoagulants
CPT/HCPCS: 36415; 71045; 80053; 84484; 85025; 93005; 96374; 96376; 99285; J3490

== ENCOUNTER → 2022-10-01 08:26 | Outpatient (BNVA) | payer MEDICARE, OTHER, SELFPAY | PROVIDERS: PCP Clinical Nurse Specialist Adult Health; Visit Provider Clinical Nurse Specialist Adult Health | DX: R10.9 Unspecified abdominal pain (principal); I48.0 Paroxysmal atrial fibrillation | CPT/HCPCS: 81000; 84443 ==

== ENCOUNTER → 2022-12-21 09:51 | Outpatient (BNVA) | payer MEDICARE, OTHER, SELFPAY | PROVIDERS: PCP Clinical Nurse Specialist Adult Health; Visit Provider Nurse Practitioner Family | DX: I48.0 Paroxysmal atrial fibrillation (principal); Z79.01 Long term (current) use of anticoagulants | CPT/HCPCS: 99213 ==

== ENCOUNTER → 2023-06-14 11:36 | Outpatient (BNVA) | payer MEDICARE, OTHER, SELFPAY | PROVIDERS: PCP Clinical Nurse Specialist Adult Health; Visit Provider Clinical Nurse Specialist Adult Health | DX: E03.9 Hypothyroidism, unspecified (principal); E55.9 Vitamin D deficiency, unspecified; Z79.899 Other long term (current) drug therapy | CPT/HCPCS: 80053; 80061; 82306; 84443; 85651; 86140 ==

== ENCOUNTER → 2023-07-02 14:50 | Outpatient (BNVA) | payer MEDICARE, OTHER, SELFPAY | PROVIDERS: PCP Clinical Nurse Specialist Adult Health; Visit Provider Internal Medicine | DX: I48.0 Paroxysmal atrial fibrillation (principal); I48.92 Unspecified atrial flutter; E03.9 Hypothyroidism, unspecified; R91.1 Solitary pulmonary nodule; M25.551 Pain in right hip; E78.5 Hyperlipidemia, unspecified; Z79.01 Long term (current) use of anticoagulants | CPT/HCPCS: 99214 ==

== ENCOUNTER → 2024-01-06 15:38 | Outpatient (BNVA) | payer MEDICARE, OTHER, SELFPAY | PROVIDERS: PCP Clinical Nurse Specialist Adult Health; Visit Provider Internal Medicine | DX: G47.19 Other hypersomnia (principal); I48.92 Unspecified atrial flutter; I48.0 Paroxysmal atrial fibrillation; E03.9 Hypothyroidism, unspecified; R91.1 Solitary pulmonary nodule; M25.551 Pain in right hip; E78.5 Hyperlipidemia, unspecified | CPT/HCPCS: 99214 ==

== ENCOUNTER 2024-01-31 11:00 | Outpatient (CLI) | payer MEDICARE, OTHER, SELFPAY ==
[2024-01-31 11:58] LABS: Basophils # 0.1 10^3/uL (0.0-0.1); Basophils % 0.8 %; Eosinophils # 0.2 10^3/uL (0.0-0.8); Eosinophils % 3.3 %; Lymphocytes # 1.9 10^3/uL (0.8-4.8); Lymphocytes % 31.1 %; Mean Corpuscular HGB Conc 32.3 g/dL (30-55); Mean Corpuscular Hemoglobin 29.7 pg (27-33); Mean Corpuscular Volume 92.1 fl (85-98); Mean Platelet Volume 10.4 fL (7.4-10.4); Monocytes # 0.5 10^3/uL (0.2-0.9); Monocytes % 7.4 %; Neutrophils # 3.46 10^3/uL (1.8-7.7); Neutrophils % 56.9 %; Nucleated Red Blood Cells % 0 %; Platelet Count 238 10^3/cmm (157-399); Red Blood Count 4.78 10^6/uL (3.85-5.65); Red Cell Distribution Width 13.2 % (12.1-15.1); White Blood Count 6.08 10^3/uL (3.29-11.43)
[2024-01-31 12:18] LABS: Alanine Aminotransferase 15 U/L (0-33); Albumin Level 4.4 g/dL (3.5-5.2); Alkaline Phosphatase 55 U/L (35-105); Anion Gap 13.9 (5-19); Aspartate Amino Transferase 15 U/L (0-32); Blood Urea Nitrogen 18 mg/dL (8-23); Calcium 9.1 mg/dL (8.5-10.5); Carbon Dioxide 27 mmol/L (22-29); Chloride 104 mmol/L (98-107); Globulin 2.4 g/dL (1.3-4.6); Glucose 79 mg/dL (65-115); Osmolality Calculated 293 mOsm/kg (285-295); Potassium 3.9 mmol/L (3.5-5.1); Sodium 141 mmol/L (136-145); Total Bilirubin 0.3 mg/dL (0.15-1.2); Total Protein 6.8 g/dL (6.6-8.7)
[2024-02-01 09:08] LABS: PROTEIN, TOTAL 6.5 g/dL (6.1-8.1)
[2024-02-03 15:40] LABS: ALBUMIN 4.3 g/dL (3.8-4.8); ALPHA 1 GLOBULIN 0.3 g/dL (0.2-0.3); ALPHA 2 GLOBULIN 0.6 g/dL (0.5-0.9); BETA 1 GLOBULIN 0.4 g/dL (0.4-0.6); BETA 2 GLOBULIN 0.4 g/dL (0.2-0.5); GAMMA GLOBULIN 0.6 g/dL (0.8-1.7)
== END 2024-01-31 11:01 | disposition home or self-care (01) ==
LOC: LAB 11:01
PROVIDERS: PCP Clinical Nurse Specialist Adult Health; Visit Provider Internal Medicine
DX: I48.0 Paroxysmal atrial fibrillation (principal); E03.9 Hypothyroidism, unspecified; E78.5 Hyperlipidemia, unspecified
CPT/HCPCS: 36415; 80053; 84155; 84165; 85025

== ENCOUNTER 2024-03-13 11:08 | Outpatient (CLI) | payer MEDICARE, OTHER, SELFPAY ==
--- NOTE | 2024-03-13 11:15 | USCV_ITS ---
Nola Schmitt Age: 68 Gender: F : 1955 Exam Date: 03/13/2024 11:23 Ordering Phys: Mauri Roach M.D ([email or web address]) Technologist: CT Exam Location: [facility] [place] Indication: BP: 116 / 60 HR: 65 Rhythm: Sinus Technical Quality: Adequate MEASUREMENTS (Male / Female) Normal Values 2D ECHO LVOT Diameter 2.2 cm LV Ejection Fraction MOD 4C 68.6 % LV Ejection Fraction MOD 2C 71.8 % LV Ejection Fraction 2C AL 73.6 % LA Diameter 2.6 cm RA Systolic Volume 4C AL 30.8 ml RA Systolic Volume 4C MOD 29.1 ml LA Sys Volume AL 53.2 cm cubed LA Sys Volume Index AL 26.2 cm cubed/m squared Aorta at Sinotubular Diameter 2.7 cm IVC Diameter 1.9 cm M-MODE LA Ao Ratio MM 1.3 AV Cusp Separation MM 1.4 cm DOPPLER AV Peak Velocity 122.0 cm/s LVOT Peak Velocity 102.0 cm/s AV Area Cont Eq vti 3.0 cm squared AV Area Cont Eq pk 3.1 cm squared MV Peak Velocity 88.0 cm/s MV Area PHT 2.8 cm squared Mitral E to A Ratio 0.8 TV Peak Velocity 215.5 cm/s TR Peak Velocity 291.0 cm/s TR Peak Gradient 33.9 mmHg TV Peak E Velocity 75.0 cm/s Right Atrial Pressure 3.0 mmHg Pulmonary Artery Systolic Pressu 36.9 mmHg PV Peak Velocity 107.5 cm/s FINDINGS Left Ventricle Normal left ventricular size, systolic function and wall thickness, with no regional wall motion abnormalities. Estimated LVEF normal 65%. Right Ventricle Normal right ventricular size and systolic function. Right Atrium Normal right atrial size. Left Atrium Normal left atrial size. Mitral Valve Structurally normal mitral valve. No mitral valve regurgitation. Aortic Valve Structurally normal trileaflet aortic valve. No aortic valve stenosis. Tricuspid Valve Structurally normal tricuspid valve. Trace tricuspid valve regurgitation. Pulmonic Valve Pulmonic valve not well visualized. Trace pulmonary valve regurgitation. Pericardium Aorta Normal size aortic root and proximal ascending aorta. IVC Normal inferior vena cava. CONCLUSIONS Normal LV systolic function. LVEF normal 65%. Normal chamber sizes. No significant valvular abnormality noted. Normal right heart and pulmonary pressures. Gama Knox MD (Electronically Signed) Final Date: 14 March 2024 11:31 S
== END 2024-03-13 11:09 | disposition home or self-care (01) ==
LOC: RAD 11:08
PROVIDERS: PCP Clinical Nurse Specialist Adult Health; Visit Provider Internal Medicine
DX: R06.02 Shortness of breath (principal)
CPT/HCPCS: 93306

== ENCOUNTER 2024-06-01 20:00 | Outpatient (CLI) | payer MEDICARE, OTHER, SELFPAY | END 2024-06-01 20:01 | disposition home or self-care (01) | LOC: SLEEP 23:46 | PROVIDERS: PCP Clinical Nurse Specialist Adult Health; Visit Provider Internal Medicine | DX: G47.33 Obstructive sleep apnea (adult) (pediatric) (principal); G47.36 Sleep related hypoventilation in conditions classified elsewhere | CPT/HCPCS: 95810 ==

== ENCOUNTER → 2024-07-06 15:38 | Outpatient (BNVA) | payer MEDICARE, OTHER, SELFPAY | PROVIDERS: PCP Clinical Nurse Specialist Adult Health; Visit Provider Internal Medicine | DX: I48.92 Unspecified atrial flutter (principal); I48.0 Paroxysmal atrial fibrillation; E03.9 Hypothyroidism, unspecified; R91.1 Solitary pulmonary nodule; M25.551 Pain in right hip; E78.5 Hyperlipidemia, unspecified; Z79.01 Long term (current) use of anticoagulants | CPT/HCPCS: 99214 ==

== ENCOUNTER → 2024-08-26 08:28 | Outpatient (BNVA) | payer MEDICARE, OTHER, SELFPAY | PROVIDERS: PCP Family Medicine; Visit Provider Family Medicine | DX: E78.5 Hyperlipidemia, unspecified (principal); E03.9 Hypothyroidism, unspecified; E55.9 Vitamin D deficiency, unspecified | CPT/HCPCS: 80053; 80061; 82306; 84439; 84443; 85025 ==

== ENCOUNTER 2024-09-04 10:44 | Outpatient (CLI) | payer MEDICARE, OTHER, SELFPAY ==
--- NOTE | 2024-09-04 11:00 | MM_ITS ---
WS: [id number] BILATERAL 3D TOMOSYNTHESIS DIGITAL SCREENING MAMMOGRAPHY WITH CAD CLINICAL INFORMATION: screening HISTORY: Screening mammogram. No current complaints. COMPARISON: 2021 TECHNIQUE: Bilateral CC and MLO views. FINDINGS: Scattered fibroglandular densities bilaterally. No suspicious focal mass, asymmetry, calcifications, or architectural distortion. No evidence of malignancy. MM/MM scr BI tomosynthesis [id number] IMPRESSION: DENSITY: There are scattered areas of fibroglandular density. BI-RADS: 1 - Negative. FOLLOW UP: 1 Year Follow-up Recommend return to annual screening mammography.
== END 2024-09-04 10:45 | disposition home or self-care (01) ==
LOC: RAD 10:45
PROVIDERS: PCP Family Medicine; Visit Provider Family Medicine
DX: Z12.31 Encounter for screening mammogram for malignant neoplasm of breast (principal); R92.323 Mammographic fibroglandular density, bilateral breasts
CPT/HCPCS: 77063; 77067

== ENCOUNTER → 2024-09-09 08:17 | Outpatient (BNVA) | payer MEDICARE, OTHER, SELFPAY | PROVIDERS: PCP Family Medicine; Visit Provider Family Medicine | DX: E87.5 Hyperkalemia (principal) | CPT/HCPCS: 80048 ==

== ENCOUNTER → 2025-01-05 15:30 | Outpatient (BNVA) | payer MEDICARE, OTHER, SELFPAY | PROVIDERS: PCP Family Medicine; Visit Provider Internal Medicine | DX: I48.91 Unspecified atrial fibrillation (principal); E78.5 Hyperlipidemia, unspecified; Z79.01 Long term (current) use of anticoagulants | CPT/HCPCS: 99214 ==

== ENCOUNTER → 2025-02-01 10:13 | Outpatient (BNVA) | payer MEDICARE, OTHER, SELFPAY | PROVIDERS: PCP Family Medicine; Visit Provider Nurse Practitioner Family | DX: L82.1 Other seborrheic keratosis (principal); L81.4 Other melanin hyperpigmentation; D23.71 Other benign neoplasm of skin of right lower limb, including hip; I83.91 Asymptomatic varicose veins of right lower extremity | CPT/HCPCS: 99213 ==

== ENCOUNTER → 2025-04-23 09:03 | Outpatient (BNVA) | payer MEDICARE, OTHER, SELFPAY | PROVIDERS: PCP Family Medicine; Visit Provider Family Medicine | DX: E78.2 Mixed hyperlipidemia (principal); E03.9 Hypothyroidism, unspecified | CPT/HCPCS: 80061; 84439; 84443 ==